=== PATIENT | male | born 1940 | race Caucasian/White ===

== ENCOUNTER 2018-04-22 16:30 | Inpatient (IN) | payer MEDICARE ==
[~2018-04-22] VITALS: Ht 172.7 cm; Wt 84.0 kg
[2018-04-22 16:55] VITALS: BP 107/74
[2018-04-22] MEDS ORDERED: CALC625T20 PO (17:36)
[2018-04-22] MEDS ORDERED: ASCO500C9 PO (17:36)
[2018-04-22] MEDS ORDERED: CYCL1DRO EACHEYE (17:36)
[2018-04-22] MEDS ORDERED: GLUC100018 PO (17:36)
[2018-04-22] MEDS ORDERED: ATOR40TA59 PO (17:36)
[2018-04-22] MEDS ORDERED: HYDR-2758 PO (17:36)
[2018-04-22] MEDS ORDERED: DONE10TA7 PO (17:36)
[2018-04-22] MEDS ORDERED: FAMO40TA4 PO (17:36)
[2018-04-22] MEDS ORDERED: FERR325T14 PO (17:36)
[2018-04-22] MEDS ORDERED: ASPI-630 PO (17:36)
[2018-04-22] MEDS ORDERED: MEGE40TA PO (17:36)
[2018-04-22] MEDS ORDERED: CYAN10005 PO (17:36)
[2018-04-22] MEDS ORDERED: OMEP10SU2 PO (17:36)
[2018-04-22] MEDS ORDERED: TYLENOL ARTHRITIS PO (17:36)
[2018-04-22] MEDS ORDERED: CALC-30 PO (17:36)
[2018-04-22] MEDS ORDERED: TRAM50TA PO (17:36)
[2018-04-22] MEDS ORDERED: SODI1TAB15 PO (17:36)
[2018-04-22] MEDS ORDERED: LEUP45SY3 SQ (17:36)
[2018-04-22] MEDS ORDERED: traMADol 50 MG TABLET PO PRN (18:45)
[2018-04-22] MEDS ORDERED: LEUPROLIDE ACETATE 45 MG SQ SCH (18:45)
[2018-04-22] MEDS ORDERED: HYDROcodone/APAP 5/325MG 1 TAB TABLET PO PRN (18:45)
[2018-04-22] MEDS ORDERED: ACETAMINOPHEN 325 MG TABLET PO PRN (18:45)
--- NOTE | 2018-04-22 18:46 | NUR ---
NSG NOTE; ADMISSION DIRECT ADMIT TO ROOM 119 AT 1640 VIA W/C ACCOMP BY RAJENDRA PT C/O LOWER ABD PAIN X 24 HOURS
[2018-04-22 18:53] VITALS: BP 110/68
[2018-04-22 19:00] LABS: BASO # 0.1 x10^3/uL (0.0-0.2); BASO % 1 % (0-3); EOS % 0 % (0-3); HEMATOCRIT 35.5 % (39.0-53.0); HEMOGLOBIN 12.2 g/dL (13.0-17.5); LYMPH # 0.8 x10^3/uL (1.0-4.8); LYMPH % 8 % (24-48); MEAN CORPUSCULAR HEMOGLOBIN 32 pg (25-35); MEAN CORPUSCULAR HGB CONC 34 g/dL (31-37); MEAN CORPUSCULAR VOLUME 93 fL (79-100); MONO # 0.9 x10^3/uL (0.0-1.1); MONO % 10 % (0-9); NEUT # 8.2 x10^3uL (1.8-7.7); NEUT % 82 % (31-73); PLATELET COUNT 139 x10^3/uL (140-400); RED BLOOD COUNT 3.83 x10^6/uL (4.30-5.70); RED CELL DISTRIBUTION WIDTH 13.9 % (11.5-14.5)
[2018-04-22 19:11] LABS: ALBUMIN 3.4 g/dL (3.4-5.0); ALBUMIN/GLOBULIN RATIO 0.9 (1.0-1.7); GFR 72.1; POTASSIUM 3.9 mmol/L (3.5-5.1); TOTAL BILIRUBIN 0.9 mg/dL (0.2-1.0)
[2018-04-22] MEDS: IV NORMAL SALINE 1,000ML 1,000 ML IV SCH (19:11)
[2018-04-22 20:14] LABS: BACTERIA,URINE 0 /HPF (0-FEW); BILIRUBIN,URINE NEG (NEG); CLARITY,URINE CLEAR; COLOR,URINE YELLOW; GLUCOSE,URINE NEG (NEG); NITRITE,URINE NEG (NEG); RBC,URINE 0 /HPF (0-2); SQUAMOUS EPITHELIAL CELL,UR OCC /LPF; UROBILINOGEN,URINE 0.2 mg/dL (0.2 mg/dL); WBC,URINE 0 /HPF (0-4)
[2018-04-22] MEDS: MEGESTROL 40 MG TABLET. PO SCH (20:37)
[2018-04-22] MEDS: DONEPEZIL HCL 10 MG TABLET PO SCH (20:37)
--- NOTE | 2018-04-22 20:38 | NUR ---
Nursing note: Went over plan of care with patient and . Patient voiced understanding. Call light within reach. Bed alarm set for safety. Will continue to monitor.
[2018-04-22] MEDS ORDERED: POTASSIUM CHLORIDE PO SCH (21:00)
[2018-04-22] MEDS: cycloSPORINE 0.05% OPTH 1 DROP DROPERETTE OU SCH ×2 (21:00→21:28)
[2018-04-22] MEDS ORDERED: SODIUM CL PO SCH (21:00)
--- NOTE | 2018-04-22 21:23 | NUR ---
Called Dr. Gonzalez with lab results of elevated DDIMER. Lab had made a mistake and put in wrong value of 0.39 so patient just went down for CT abdomen/Pelvis. Dr. Gonzalez said he would put patient on heparin Q 8 hours and re-evaluate tomorrow. Will let family and patient know.
--- NOTE | 2018-04-22 22:04 | RAD ---
CT ABDOMEN PELVIS WO CONTRAST dated 04/22/2018 9:03 PM Indication: Abdominal pain.Burning pain in lower abdomen. Hx prostate cancer . Comparison: 08/12/2015. Technique: Contiguous axial imaging of the abdomen and pelvis performed without the administration of IV or oral contrast. One or more of the following individualized dose reduction techniques were utilized for this examination: 1. Automated exposure control 2. Adjustment of the mA and/or kV according to patient size 3. Use of iterative reconstruction technique Findings: Limited images of lung bases show linear bands of increased density bilaterally, likely scar or atelectasis. Heart size within normal limits. No pleural or pericardial effusion. Coronary artery calcifications. Liver is of diffuse low density, compatible with fatty infiltration. There is a well-defined low-density focus within the lateral segment left lobe liver, likely cyst. No biliary ductal dilatation. Gallbladder unremarkable. Low-density mass at the right adrenal gland measures 2.5 cm with Hounsfield value of -5, consistent with adenoma. There is also a small adenoma at the left adrenal gland, unchanged. Spleen is normal in size. Pancreas and kidneys are unremarkable. No hydronephrosis. Unopacified GI tract normal in caliber and contour. No focal bowel wall thickening. Appendix normal in caliber. There is evidence of prior sigmoid colon resection. There are a few scattered diverticula throughout. Prominent ventral hernia at the right rectus muscle containing loops of small bowel, new from prior study. There is also a prominent umbilical hernia containing only fat, new from prior exam. No bowel obstruction. No adenopathy or ascites. Images of pelvis show nondistended urinary bladder. The prostate gland is mildly enlarged with fiducial markers in place. No free fluid or lymphadenopathy. Bone windows show no acute findings. There is wedge compression deformity at L2 and mild wedge compression deformity at L4, not definitely present on prior study. IMPRESSION: 1. No acute abnormality of abdomen or pelvis. 2. Prominent ventral hernia at the right rectus muscle containing small bowel loops, new from prior study. No evidence of bowel obstruction. 3. Small umbilical hernia containing only fat. 4. Bilateral adrenal adenomas, unchanged. 5. Age indeterminate compression fractures at L2 and L4. If indicated, MRI could better evaluate. Electronically signed by: Saul Andrade MD (04/22/2018 10:00 PM) [facility]
--- NOTE | 2018-04-22 22:25 | NUR ---
Called Dr. Gonzalez with CT results. No additional orders at this time.
[2018-04-22 22:26] VITALS: BP 102/73
--- NOTE | 2018-04-23 00:30 | NUR ---
Report received from CHARMAINE Ernst. Assumed care of patient at this time. Pt resting comfortably in bed, alarm set. at bedside. Will monitor.
[2018-04-23 05:01] VITALS: BP 98/67
[2018-04-23] MEDS: HEPARIN PF for SUB-Q USE 5,000 UNIT/0.5 ML VIAL. SQ SCH ×3 (05:49→22:32)
[2018-04-23 06:32] LABS: CALCIUM 8.6 mg/dL (8.5-10.1); GFR 72.1; POTASSIUM 3.6 mmol/L (3.5-5.1)
[2018-04-23 06:38] LABS: BASO # 0.1 x10^3/uL (0.0-0.2); BASO % 1 % (0-3); EOS % 0 % (0-3); HEMATOCRIT 34.4 % (39.0-53.0); HEMOGLOBIN 11.8 g/dL (13.0-17.5); LYMPH # 0.7 x10^3/uL (1.0-4.8); LYMPH % 11 % (24-48); MEAN CORPUSCULAR HEMOGLOBIN 32 pg (25-35); MEAN CORPUSCULAR HGB CONC 35 g/dL (31-37); MEAN CORPUSCULAR VOLUME 93 fL (79-100); MONO # 0.8 x10^3/uL (0.0-1.1); MONO % 11 % (0-9); NEUT # 5.5 x10^3uL (1.8-7.7); NEUT % 78 % (31-73); PLATELET COUNT 127 x10^3/uL (140-400); WHITE BLOOD COUNT 7.1 x10^3/uL (4.0-11.0)
[2018-04-23 08:00] VITALS: BP 115/67
[2018-04-23] MEDS: IV NORMAL SALINE 1,000ML 1,000 ML IV SCH ×2 (08:20→20:10)
[2018-04-23] MEDS: FAMOTIDINE 20 MG TABLET PO SCH (09:39)
[2018-04-23] MEDS: ASPIRIN 81 MG TAB.CHEW PO SCH (09:40)
[2018-04-23] MEDS: PANTOPRAZOLE 40 MG TABLET. PO SCH (09:40)
[2018-04-23] MEDS: cycloSPORINE 0.05% OPTH 1 DROP DROPERETTE OU SCH ×3 (09:40→20:22)
[2018-04-23] MEDS: FERROUS SULFATE 325 MG TABLET. PO SCH (09:40)
[2018-04-23] MEDS: MEGESTROL 40 MG TABLET. PO SCH ×4 (09:40→20:09)
[2018-04-23 11:36] VITALS: BP 112/80
[2018-04-23 16:24] VITALS: BP 130/70
[2018-04-23] MEDS ORDERED: PIP/TAZO PER PHARMACY MC PRN (17:45)
[2018-04-23] MEDS ORDERED: VANCOMYCIN PER PHARMACY MC PRN (17:45)
[2018-04-23] MEDS ORDERED: VANCOMYCIN 2 GM in IV NORMAL SALINE 500ML 500 ML IV ONE (18:30)
[2018-04-23 18:41] VITALS: BP 103/66
[2018-04-23 18:53] LABS: BASO # 0.1 x10^3/uL (0.0-0.2); BASO % 1 % (0-3); EOS % 0 % (0-3); HEMATOCRIT 33.8 % (39.0-53.0); HEMOGLOBIN 11.6 g/dL (13.0-17.5); LYMPH # 0.6 x10^3/uL (1.0-4.8); LYMPH % 8 % (24-48); MEAN CORPUSCULAR HEMOGLOBIN 32 pg (25-35); MEAN CORPUSCULAR HGB CONC 34 g/dL (31-37); MEAN CORPUSCULAR VOLUME 92 fL (79-100); MONO # 0.7 x10^3/uL (0.0-1.1); MONO % 11 % (0-9); NEUT # 5.2 x10^3uL (1.8-7.7); NEUT % 80 % (31-73); PLATELET COUNT 123 x10^3/uL (140-400); RED BLOOD COUNT 3.66 x10^6/uL (4.30-5.70); RED CELL DISTRIBUTION WIDTH 14.2 % (11.5-14.5); WHITE BLOOD COUNT 6.6 x10^3/uL (4.0-11.0)
--- NOTE | 2018-04-23 19:59 | RAD ---
PORTABLE CHEST 1V Clinical indications: Onset high fever COMPARISON: October 11, 2010. Findings: No acute lung infiltrate or pleural effusion or pulmonary edema or lung mass or pneumothorax is seen. Sternotomy is evident The heart size, pulmonary vasculature, mediastinum and both jose de jesus are unremarkable. Impression: No acute radiographic abnormality is seen. Electronically signed by: Colby Martini MD (04/23/2018 7:55 PM) [facility]
[2018-04-23] MEDS: PIPERACILLIN/TAZOBACTAM 3.375 GM in IV NORMAL SALINE 50ML 50 ML IV SCH (20:09)
[2018-04-23] MEDS: DONEPEZIL HCL 10 MG TABLET PO SCH (20:09)
[2018-04-23 21:12] LABS: BACTERIA,URINE 0 /HPF (0-FEW); BILIRUBIN,URINE NEG (NEG); CLARITY,URINE CLEAR; COLOR,URINE YELLOW; GLUCOSE,URINE NEG (NEG); NITRITE,URINE NEG (NEG); RBC,URINE OCC /HPF (0-2); SQUAMOUS EPITHELIAL CELL,UR OCC /LPF; UROBILINOGEN,URINE 0.2 mg/dL (0.2 mg/dL); WBC,URINE OCC /HPF (0-4)
[2018-04-23 22:32] VITALS: BP 109/71
[2018-04-24] MEDS: PIPERACILLIN/TAZOBACTAM 3.375 GM in IV NORMAL SALINE 50ML 50 ML IV SCH ×3 (00:30→12:00)
[2018-04-24 05:40] VITALS: BP 105/68
[2018-04-24] MEDS: HEPARIN PF for SUB-Q USE 5,000 UNIT/0.5 ML VIAL. SQ SCH ×3 (06:07→21:16)
[2018-04-24 06:59] LABS: BASO % 0 % (0-3); EOS % 0 % (0-3); HEMATOCRIT 32.2 % (39.0-53.0); HEMOGLOBIN 11.3 g/dL (13.0-17.5); LYMPH # 0.5 x10^3/uL (1.0-4.8); LYMPH % 10 % (24-48); MEAN CORPUSCULAR HEMOGLOBIN 33 pg (25-35); MEAN CORPUSCULAR HGB CONC 35 g/dL (31-37); MEAN CORPUSCULAR VOLUME 93 fL (79-100); MONO # 0.7 x10^3/uL (0.0-1.1); MONO % 13 % (0-9); NEUT # 4.2 x10^3uL (1.8-7.7); NEUT % 77 % (31-73); PLATELET COUNT 122 x10^3/uL (140-400); RED BLOOD COUNT 3.47 x10^6/uL (4.30-5.70); RED CELL DISTRIBUTION WIDTH 13.6 % (11.5-14.5); WHITE BLOOD COUNT 5.5 x10^3/uL (4.0-11.0)
[2018-04-24 07:10] LABS: ALBUMIN 2.9 g/dL (3.4-5.0); ALBUMIN/GLOBULIN RATIO 0.9 (1.0-1.7); CALCIUM 8.3 mg/dL (8.5-10.1); GFR 72.1; POTASSIUM 3.5 mmol/L (3.5-5.1); TOTAL BILIRUBIN 0.7 mg/dL (0.2-1.0); TOTAL PROTEIN 6.3 g/dL (6.4-8.2)
--- NOTE | 2018-04-24 07:38 | NUR ---
Pharmacy Vancomycin Dosing Note S:Consulted to monitor and dose vancomycin started 04/23/18. O:NINO EATON is a 77 year old M with Empiric FEVER . Height: 5 feet, 8 inches Weight: 83.813302 kg [place] Body Weight: 68.40 Adjusted Body Weight: 74.64 Dosing Weight: Actual Other Antibiotics: ZOSYN 3.375GM IV Q6H LABS: Last BUN: 11 Last Creatinine: 1.0 Creatinine Clearance: 63.24 Last WBC: 5.5 Last Platelets: 122 Vancomycin Dosing: Loading Dose: 2000 mg x1 Dosing Weight: Actual Target Trough: 10-20 A: Based on: Actual weight, renal function and indication P: 1. Begin Vancomycin 1250 mg IV q12h 2. Follow up Trough level on 04/25/18 at 0830 3. Pharmacy will continue to monitor, follow and adjust therapy as needed. GIDEON RODRIGUES, 04/24/18 0738
[2018-04-24] MEDS ORDERED: VANCOMYCIN 1.25 GM in IV NORMAL SALINE 250ML 250 ML IV SCH (09:00)
[2018-04-24] MEDS: cycloSPORINE 0.05% OPTH 1 DROP DROPERETTE OU SCH ×2 (09:00→20:33)
[2018-04-24] MEDS: MEGESTROL 40 MG TABLET. PO SCH ×4 (09:13→20:34)
[2018-04-24] MEDS: ASPIRIN 81 MG TAB.CHEW PO SCH (09:13)
[2018-04-24] MEDS: FAMOTIDINE 20 MG TABLET PO SCH (09:13)
[2018-04-24] MEDS: LACTOBACILLUS RHAMNOSUS GG 1 CAPSULE. PO SCH ×2 (09:13→20:34)
[2018-04-24] MEDS: PANTOPRAZOLE 40 MG TABLET. PO SCH (09:13)
[2018-04-24] MEDS: FERROUS SULFATE 325 MG TABLET. PO SCH (09:13)
[2018-04-24 11:00] VITALS: BP 115/65
[2018-04-24] MEDS: IV NORMAL SALINE 1,000ML 1,000 ML IV SCH (11:00)
[2018-04-24 15:00] VITALS: BP 112/65
[2018-04-24 19:39] VITALS: BP 140/96
[2018-04-24] MEDS: DONEPEZIL HCL 10 MG TABLET PO SCH (20:34)
[2018-04-25] MEDS: IV NORMAL SALINE 1,000ML 1,000 ML IV SCH (00:20)
[2018-04-25 01:00] VITALS: BP 127/76
[2018-04-25] MEDS: HEPARIN PF for SUB-Q USE 5,000 UNIT/0.5 ML VIAL. SQ SCH (06:02)
[2018-04-25 06:16] VITALS: BP 122/79
[2018-04-25] MEDS: FAMOTIDINE 20 MG TABLET PO SCH (07:54)
[2018-04-25] MEDS: cycloSPORINE 0.05% OPTH 1 DROP DROPERETTE OU SCH (07:54)
[2018-04-25] MEDS: MEGESTROL 40 MG TABLET. PO SCH (07:54)
[2018-04-25] MEDS: PANTOPRAZOLE 40 MG TABLET. PO SCH (07:54)
[2018-04-25] MEDS: LACTOBACILLUS RHAMNOSUS GG 1 CAPSULE. PO SCH (07:54)
[2018-04-25] MEDS: ASPIRIN 81 MG TAB.CHEW PO SCH (07:54)
[2018-04-25] MEDS: FERROUS SULFATE 325 MG TABLET. PO SCH (07:54)
[2018-04-25] MEDS ORDERED: IV 1/2 NORMAL SALINE 1,000 ML IV PRN (09:00)
--- NOTE | 2018-04-25 09:14 | PN ---
DATE: 04/24/2018 The patient with abdominal pain, last night began to spike temperature 102.5. The patient also was having trouble breathing. The patient was monitored carefully and was started on IV antibiotic therapy. The patient today is making fairly good progress, although he is having severe abdominal pain and this is what became a real problem as he continues to have this abdominal pain and continues to be monitored carefully. Lungs are diminished, but clear. Cardiovascular exam is stable. Abdomen soft, diffuse tenderness noted. We will continue with the a.m. antibiotics and also will need probably transfer for surgical consultation for his abdominal hernias on this abdominal pain that he continues to have. Prominent ventral hernia, umbilical hernia, compression fractures, which are giving him pain in his back, also probably needs to see an interventional radiologist as well. CONSTANCE PUENTE MD DR: JOAQUIN/vicente JOB#: [id number] / [id number]
[2018-04-25 11:05] VITALS: BP 127/81
--- NOTE | 2018-04-25 11:52 | NUR ---
NSG NOTE; TRANSFER TO [facility] REPORT CALLED TO ALONA MONTANO AT 1120 AND DAUGHTER AT BEDSIDE AND ARE AWARE OF TRANSFER TRANSFER TO [facility] AT 1150 VIA CART ACCOMP BY EMS PERSONNEL
--- NOTE | 2018-05-01 23:16 | DS ---
DATE OF DISCHARGE: 04/25/2018 HOSPITAL COURSE: A 77-year-old male came in with severe abdominal pain. Scan showed multiple ventral hernias that could be related to the pain. The one on the right rectus muscle some containing small loops of bowel, but no bowel obstruction. He also had some compression fractures, but he was very mindful of the pain that was coming from his back. His labs look basically stable. Hemoglobin 11.3 and 32, and otherwise, he did have a decrease in albumin. Because of his continued abdominal pain and the need for surgical consult, he was transferred down to [facility]. See [facility]. Activities as tolerated down there at the hospital. Discussed with his , his daughter and all in agreement to transfer him down there to care of a hospitalist and then surgical consultation. IMPRESSION: Abdominal pain, possibly related to a significant ventral hernias, compression fractures of the vertebral bodies lumbar. The patient otherwise doing very well and will continue to be monitored carefully and transferred down there. He will be on his diet, soft diet, and other orders to be taken by the hospitalist. CONSTANCE PUENTE MD DR: JOAQUIN/vicente JOB#: [id number] / [id number]
== END 2018-04-25 11:50 | disposition short-term general hospital (02) | DRG 394 ==
LOC: 1 SOUTH 16:48
PROVIDERS: ADMIT Family Medicine; ATTEND Family Medicine
DX: K43.9 Ventral hernia without obstruction or gangrene (principal); M48.56XA Collapsed vertebra, not elsewhere classified, lumbar region, initial encounter for fracture; I10 Essential (primary) hypertension; E78.5 Hyperlipidemia, unspecified; I25.10 Atherosclerotic heart disease of native coronary artery without angina pectoris; Z86.73 Personal history of transient ischemic attack (TIA), and cerebral infarction without residual deficits; Z85.46 Personal history of malignant neoplasm of prostate; Z92.3 Personal history of irradiation; Z95.1 Presence of aortocoronary bypass graft; Z98.49 Cataract extraction status, unspecified eye; Z79.899 Other long term (current) drug therapy; Z88.8 Allergy status to other drugs, medicaments and biological substances; Z79.82 Long term (current) use of aspirin; K42.9 Umbilical hernia without obstruction or gangrene
CPT/HCPCS: 36415; 71045; 74176; 80048; 80053; 81001; 85025; 85379; 87040; 87086; J2543; J3370; J7030; J7040; J7050